=== PATIENT | male | born 1960 | race Caucasian/White ===

== ENCOUNTER 2019-10-21 08:47 | Day surgery (SDC) | payer BC ==
[~2019-10-21 08:47] MED LIST: Lactated Ringers 1,000 ML IV SCH
[2019-10-21] MEDS ORDERED: Midazolam 1 MG/ML 2 ML SDV ONE (09:06)
[2019-10-21] MEDS ORDERED: Propofol 200 MG/20 ML SDV ONE ×2 (09:06→09:52)
--- NOTE | 2019-10-21 09:49 | PCM.PREANE ---
Preanesthetic Assessment - Anesthesia/Transfusion/Family Hx Other Type of Anesthesia Reaction Comment: states "slept an extra 45 minutes after knee surgery in 1984" Transfusion History: No Prior Transfusion(s) - Physical Assessment NPO Status Date: 10/20/19 Vital Signs: Last Vital Signs Temp 97.0 F 10/21/19 09:04 Pulse 99 10/21/19 09:04 Resp 16 10/21/19 09:04 BP 137/88 10/21/19 09:04 Pulse Ox 95 10/21/19 09:04 Height: 5 ft 8 in Weight: 154.221 kg ASA Class: 4 Mental Status: Alert & Oriented x3 Airway Class: Mallampati = 3 Dentition: Reports: Normal Dentition ROM/Head Extension: Full Lungs: Clear to Auscultation, Normal Respiratory Effort Cardiovascular: Regular Rate, Regular Rhythm - Allergies Allergies/Adverse Reactions: Allergies Allergy/AdvReac Type Severity Reaction Status Date / Time No Known Allergies Allergy Verified 10/21/19 09:19 - Anesthesia Plan Pre-Op Medication Ordered: None - Acknowledgements Anesthesia Type Planned: General Anesthesia Pt an Appropriate Candidate for the Planned Anesthesia: Yes Alternatives and Risks of Anesthesia Discussed w Pt/Guardian: Yes Pt/Guardian Understands and Agrees with Anesthesia Plan: Yes Additional Comments: PMH: htn, hld, hyperuricemia, very high risk for JOSE MARIA, has refused w/u for JOSE MARIA PLAN: GET with propofol and ketamine, TIVA maintenence, prolongued post op observation, potential overnight admission. no narcotic and no benzodiazepine. if muscle relaxant needed: use sux PreAnesthesia Questionnaire HEENT History: Reports: None Cardiovascular History: Reports: High Cholesterol, Hypertension Respiratory History: Reports: Other (See Below) Other Respiratory History: chronic bronchitis when he was younger Gastrointestinal History: Reports: None Genitourinary History: Reports: None Musculoskeletal History: Reports: Gout Neurological History: Reports: None Psychiatric History: Reports: None Endocrine/Metabolic History: Reports: Obesity/BMI 30+ Other Endocrine/Metabolic History: "prediabetic" Hematologic History: Reports: None Immunologic History: Reports: None Oncologic (Cancer) History: Reports: None Dermatologic History: Reports: None - Past Surgical History Head Surgeries/Procedures: Reports: None HEENT Surgical History: Reports: Tonsillectomy Cardiovascular Surgical History: Reports: None Respiratory Surgical History: Reports: None GI Surgical History: Reports: None Male Surgical History: Reports: None Endocrine Surgical History: Reports: None Neurological Surgical History: Reports: None Musculoskeletal Surgical History: Reports: Arthroscopic Knee, Carpal Tunnel Other Musculoskeletal Surgeries/Procedures:: marilyn carpal tunnel release, knee arthroscopy, DeQuervains-left hand Oncologic Surgical History: Reports: None Dermatological Surgical History: Reports: None - SUBSTANCE USE Tobacco Use Within Last Twelve Months: Other (See Below) - HOME MEDS Home Medications: Home Meds Lisinopril 20 mg PO BRK 11/11/14 [History] allopurinoL [Allopurinol] 300 mg PO BRK 11/11/14 [History] amLODIPine Besylate [Amlodipine Besylate] 10 mg PO BRK 11/11/14 [History] atorvaSTATin [Lipitor] 20 mg PO BEDTIME 11/11/14 [History] Acetaminophen [Tylenol Arthritis] 1 tab PO ASDIRECTED PRN 10/15/19 [History] - CURRENT (IN HOUSE) MEDS Current Meds: Current Medications Lactated Ringer's (Ringers, Lactated) 1,000 mls @ 125 mls/hr IV ASDIRECTED JENNIFER Last Admin: 10/21/19 09:08 Dose: 125 mls/hr Discontinued Medications Midazolam HCl (Versed 1 Mg/Ml) Confirm Administered Dose 2 mg .ROUTE .STK-MED ONE Stop: 10/21/19 09:07 Propofol (Diprivan 20 Ml) Confirm Administered Dose 400 mg .ROUTE .STK-MED ONE Stop: 10/21/19 09:07
[2019-10-21] MEDS ORDERED: Lidocaine 2% 5 ML SDV ONE (10:00)
[2019-10-21] MEDS ORDERED: Lactated Ringers 1,000 ML IV SCH (10:30)
--- NOTE | 2019-10-21 10:31 | PCM.OPNOTE ---
- General Post-Op/Procedure Note Date of Surgery/Procedure: 10/21/19 Operative Procedure(s): Colonoscopy with cold rectal polypectomy Pre Op Diagnosis: Desire for colorectal cancer screening Post-Op Diagnosis: Rectal polyp Anesthesia Technique: General ET Tube (ASA III) Primary Surgeon: Johann Long Condition: Good Free Text/Narrative:: DICTATION [id number] CPT CODE 06180
--- NOTE | 2019-10-21 11:11 | OR ---
SURGEON: Johann Long M.D. DATE OF PROCEDURE: 10/21/2019 OPERATION PERFORMED: Colonoscopy with cold rectal polypectomy. PRIMARY SURGEON: Johann Long MD. ANESTHESIA: General endotracheal. ASA CLASSIFICATION: III. PREOPERATIVE DIAGNOSIS: Desire for colorectal cancer screening. POSTOPERATIVE DIAGNOSIS: Rectal polyp. DESCRIPTION OF PROCEDURE: The patient was taken to the endoscopy room and kept on the endoscopy table in the supine position. Following satisfactory attainment of general endotracheal anesthesia, he was positioned in the left lateral decubitus position. The colonoscope was inserted into the rectum and advanced with minimal difficulty to the cecum. The colonoscope was retroflexed to visualize the ascending colon from below, then straightened and slowly withdrawn. The cecum, ascending colon, hepatic flexure, transverse colon, splenic flexure, descending colon, and sigmoid colon were very well visualized. No tumors, polyps, diverticula, or angiodysplastic changes were noted anywhere in the lower gastrointestinal tract. Once the colonoscope was withdrawn to the rectum, a small polyp was encountered, and this was removed with cold biopsy forceps. The colonoscope was retroflexed to visualize the anal orifice from above. No tumors or polyps were seen. There were some minor hemorrhoidal changes. The colonoscope was then straightened, the rectum aspirated, and the colonoscope removed. The patient tolerated the procedure well. He was returned to the supine position. Following emergence from anesthesia and extubation, the patient was taken to recovery room in stable condition. REJI / ONDINA /[id number]
--- NOTE | 2019-10-21 11:30 | PCM.POSTAN ---
POST ANESTHESIA ASSESSMENT - MENTAL STATUS Mental Status: Alert, Oriented - VITAL SIGNS Vital Signs: Last Vital Signs Temp 97.2 F 10/21/19 11:00 Pulse 84 10/21/19 11:00 Resp 14 10/21/19 11:00 BP 149/78 H 10/21/19 11:00 Pulse Ox 91 L 10/21/19 11:00 - RESPIRATORY Respiratory Status: Respiratory Rate WNL, Airway Patent - CARDIOVASCULAR CV Status: Pulse Rate WNL, Blood Pressure Stable - GASTROINTESTINAL GI Status: No Symptoms - POST OP HYDRATION Hydration Status: Adequate & Stable - OBSERVATIONS Free Text/Narrative:: sats fall to 88% on room air when resting. Will start prolongued observation in phase 2 pacu.
--- NOTE | 2019-10-21 12:49 | PCM48HPAN ---
Post Anesthesia Note - EVALUATION WITHIN 48HRS OF ANESTHETIC Vital Signs in Normal Range: Yes Patient Participated in Evaluation: Yes Respiratory Function Stable: Yes Airway Patent: Yes Cardiovascular Function Stable: Yes Hydration Status Stable: Yes Pain Control Satisfactory: Yes Nausea and Vomiting Control Satisfactory: Yes Mental Status Recovered: Yes Vital Signs: Last Vital Signs Temp 97.2 F 10/21/19 11:00 Pulse 76 10/21/19 11:30 Resp 16 10/21/19 11:30 BP 124/70 10/21/19 11:30 Pulse Ox 92 L 10/21/19 11:30 - COMMENTS/OBSERVATIONS Free Text/Narrative:: sats 91-93% on room air during 45 min of obseration in phase 2. maddy disc inst given
[2019-10-21 13:35] VITALS: BP 123/67; PULSE 71
== END 2019-10-21 12:47 | disposition home or self-care (01) ==
LOC: MW.SDS 08:47
PROVIDERS: ATTEND Surgery
DX: Z12.11 Encounter for screening for malignant neoplasm of colon (principal); K62.1 Rectal polyp; E66.01 Morbid (severe) obesity due to excess calories; Z87.891 Personal history of nicotine dependence; Z68.43 Body mass index [BMI] 50.0-59.9, adult; Z72.89 Other problems related to lifestyle
CPT/HCPCS: 45380; J2001; J2704; J7120; 88305; J2250

== ENCOUNTER 2021-05-02 17:45 | Emergency (ER) | payer BC ==
[2021-05-02] MEDS ORDERED: valACYclovir 500 MG Tab PO ONE ×4 (20:30→20:35)
[2021-05-02] MEDS ORDERED: Acetaminophen/HYDROcodone 325-5 MG Tab PO ONE (20:36)
[2021-05-02] MEDS ORDERED: Ibuprofen 600 MG Tab PO ONE (20:36)
--- NOTE | 2021-05-02 20:43 | EDM.PDOC ---
ED HPI GENERAL MEDICAL PROBLEM - General Chief Complaint: Skin Complaint Stated Complaint: POSSIBLE SHINGLES Time Seen by Provider: 05/02/21 20:18 - History of Present Illness INITIAL COMMENTS - FREE TEXT/NARRATIVE: HISTORY AND PHYSICAL: History of present illness: This is a 61-year-old gentleman who presents ER today with self diagnosis of shingles to his right forehead and right temporoparietal region. Patient reports he is at pain and discomfort in that area for approximately 2 to 3 days and then today noticed vesicles and diagnosed himself with shingles. Patient presents ER today requesting assistance with treatment. Patient has any recent fevers, shakes, chills, nausea, vomiting, diarrhea, dysuria, frequency, urgency. Patient reports he did not get his shingles vaccination. Patient reports that he does not have any severe pain and is able to tolerate the discomfort with ibuprofen [id number]. Patient denies any pain or discomfort to his eyes. Patient denies any pain to his ear. Patient denies any recent weight gain or weight loss. Patient denies any immunocompromise states. Patient denies any visual changes. Review of systems: As per history of present illness and below otherwise all systems reviewed and negative. Past medical history: As per history of present illness and as reviewed below otherwise noncontributory. Surgical history: As per history of present illness and as reviewed below otherwise noncontributory. Social history: No reported history of drug abuse. Family history: As per history of present illness and as reviewed below otherwise noncontributory. Physical exam: This patient was seen and evaluated during the 2019 SARS-CoV-2 novel coronavirus pandemic period. Community viral transmission is ongoing at time of this encounter and the emergency department is operating under pandemic response procedures. Constitutional: Patient is oriented to person, place, and time. Appears well- developed and well-nourished. No distress. HEENT: Moist mucous membranes Head: Normocephalic and atraumatic Eyes: Right eye exhibits no discharge. Left eye exhibits no discharge. No scleral icterus Neck: Normal range of motion. No tracheal deviation present. Cardiovascular: Normal rate and regular rhythm. Pulmonary: Effort normal, no respiratory distress. Abdominal: No distention Musculoskeletal: Normal range of motion Neurologic: Alert and oriented to person, place and time. Skin: [place], warm and dry. Psychiatric: Normal mood and affect. Behavior is normal. Judgment and thought content normal. Nursing note and vital signs have been reviewed Patient's ER physical exam is significant for vesicular lesions on the right side of his forehead that do not cross to the left of the midline. Patient does have some vesicles to his scalp as well that do not cross over to the left of midline. Ophthalmological exam reveals no ulcerative lesions or injection to his conjunctiva. Negative fluorescein uptake. Visual acuity grossly intact. Diagnostics: [] Therapeutics: [] Assessment and plan: 61-year-old presents ER today secondary to diagnosis of shingles to his right forehead. Patient will get started on valacyclovir. Pharmacy is closed throughout town on so he will be given 3 additional pills of valacyclovir 1000 mg. Patient will be written a prescription for valacyclovir 1000 mg 3 times a day for 7 days. Patient also be given a prescription for ibuprofen and [place] to assist with pain and discomfort if he should have it. Patient was also instructed to make an appointment to see the executive community planning on Monday for reevaluation. Patient will make an appointment see his primary care physician within the week for reevaluation as well to. Reassessment at the time of disposition demonstrates that the patient is in no acute distress. The patient has remained stable throughout the entire ED visit and is without objective evidence for acute process requiring urgent intervention or hospitalization. The patient is stable for discharge, counseling is provided as documented above, discussed symptomatic treatment and specific conditions for return. I have spoken with the patient/caregiver and discussed todays findings, in addition to providing specific details for the plan of care. Questions are answered and there is agreement with the plan. Definitive disposition and diagnosis as appropriate pending reevaluation and review of above. Scalp Pain Score (Numeric/FACES): 2 - Related Data Allergies Allergy/AdvReac Type Severity Reaction Status Date / Time No Known Allergies Allergy Verified 05/02/21 19:40 Home Meds: Home Meds Lisinopril 20 mg PO BRK 11/11/14 [History] allopurinoL [Allopurinol] 300 mg PO BRK 11/11/14 [History] amLODIPine Besylate [Amlodipine Besylate] 10 mg PO BRK 11/11/14 [History] atorvaSTATin [Lipitor] 20 mg PO BEDTIME 11/11/14 [History] Acetaminophen [Tylenol Arthritis] 1 tab PO ASDIRECTED PRN 10/15/19 [History] Hydrocodone/Acetaminophen [Hydrocodone-Acetamin 5-325 mg] 1 each PO Q6HR PRN #14 tab 05/02/21 [Rx] Ibuprofen 600 mg PO Q6HR PRN #30 tablet 05/02/21 [Rx] valACYclovir HCl [valACYclovir] 1,000 mg PO TID #18 tablet 05/02/21 [Rx] Past Medical History HEENT History: Reports: None Cardiovascular History: Reports: High Cholesterol, Hypertension Respiratory History: Reports: Other (See Below) Other Respiratory History: chronic bronchitis when he was younger Gastrointestinal History: Reports: None Genitourinary History: Reports: None Musculoskeletal History: Reports: Gout Neurological History: Reports: None Psychiatric History: Reports: None Endocrine/Metabolic History: Reports: Obesity/BMI 30+ Other Endocrine/Metabolic History: "prediabetic" Hematologic History: Reports: None Immunologic History: Reports: None Oncologic (Cancer) History: Reports: None Dermatologic History: Reports: None - Infectious Disease History Infectious Disease History: Reports: Chicken Pox, Measles - Past Surgical History Head Surgeries/Procedures: Reports: None HEENT Surgical History: Reports: Tonsillectomy Cardiovascular Surgical History: Reports: None Respiratory Surgical History: Reports: None GI Surgical History: Reports: None Male Surgical History: Reports: None Endocrine Surgical History: Reports: None Neurological Surgical History: Reports: None Musculoskeletal Surgical History: Reports: Arthroscopic Knee, Carpal Tunnel Other Musculoskeletal Surgeries/Procedures:: marilyn carpal tunnel release, knee arthroscopy, DeQuervains-left hand Oncologic Surgical History: Reports: None Dermatological Surgical History: Reports: None Social & Family History - Family History Family Medical History: No Pertinent Family History - Tobacco Use Tobacco Use Status *Q: Former Tobacco User Used Tobacco, but Quit: Yes Month/Year Tobacco Last Used: 30 years - Caffeine Use Caffeine Use: Reports: Soda - Recreational Drug Use Recreational Drug Use: No ED ROS GENERAL - Review of Systems Review Of Systems: See Below ED EXAM, SKIN/RASH Exam: See Below Course - Vital Signs Last Recorded V/S: Last Vital Signs Temp 97.6 F 05/02/21 19:41 Pulse 83 05/02/21 19:41 Resp 20 05/02/21 19:41 BP 135/78 05/02/21 19:41 Pulse Ox 92 L 05/02/21 19:41 - Orders/Labs/Meds Orders: Active Orders 24 hr Category Date Time Status Acetaminophen/HYDROcodone [[place] 325-5 MG] Med 05/02/21 20:36 Once 1 tab PO ONETIME ONE Ibuprofen [Motrin] Med 05/02/21 20:36 Once 600 mg PO ONETIME ONE Meds: Medications Discontinued Medications Generic Name Dose Route Start Last Admin Trade Name Thom PRN Reason Stop Dose Admin Valacyclovir HCl 1,000 mg 05/02/21 20:30 Valacyclovir 500 Mg Tab PO 05/02/21 20:31 ONETIME ONE Valacyclovir HCl 1,000 mg 05/02/21 20:31 Valacyclovir 500 Mg Tab PO 05/02/21 20:32 ONETIME ONE Valacyclovir HCl 1,000 mg 05/02/21 20:32 Valacyclovir 500 Mg Tab PO 05/02/21 20:33 ONETIME ONE Valacyclovir HCl 1,000 mg 05/02/21 20:35 Valacyclovir 500 Mg Tab PO 05/02/21 20:36 ONETIME ONE Departure - Departure Time of Disposition: 20:40 Disposition: Home, Self-Care 01 Condition: Good Clinical Impression: Shingles Qualifiers: Herpes zoster complications: without complications Qualified Code(s): B02.9 - Zoster without complications - Discharge Information Instructions: Shingles Referrals: Logan Kc MD [Primary Care Provider] - Additional Instructions: Your seen and evaluated in ER today secondary to an outbreak of shingles to your forehead. As we discussed, you must follow-up with the eye doctor for reevaluation in the next 2 to 3 days. You will be given a prescription for valacyclovir 1000 mg 3 times a day for a total of 7 days. I will also write you a prescription for ibuprofen and [place] to assist you with pain and discomfort. Please make an appointment see your doctor within 1 to 2 weeks for reevaluation as well. Please return to the ER if you develop any visual changes, severe pain, severe headaches or any other new or concerning symptoms. The following information is given to patients seen in the emergency department who are being discharged to home. This information is to outline your options for follow-up care. We provide all patients seen in our emergency department with a follow-up referral. The need for follow-up, as well as the timing and circumstances, are variable depending upon the specifics of your emergency department visit. If you don't have a primary care physician on staff, we will provide you with a referral. We always advise you to contact your personal physician following an emergency department visit to inform them of the circumstance of the visit and for follow-up with them and/or the need for any referrals to a consulting specialist. The emergency department will also refer you to a specialist when appropriate. This referral assures that you have the opportunity for follow-up care with a specialist. All of these measure are taken in an effort to provide you with optimal care, which includes your follow-up. Under all circumstances we always encourage you to contact your private physician who remains a resource for coordinating your care. When calling for follow-up care, please make the office aware that this follow-up is from your recent emergency room visit. If for any reason you are refused follow-up, please contact the [facility] Emergency Department at and asked to speak to the emergency department charge nurse. [facility] [address] [place] [address] [place] [address] Sepsis Event Note (ED) - Evaluation Sepsis Screening Result: No Definite Risk - Focused Exam Vital Signs: Vital Signs Temp Pulse Resp BP Pulse Ox 05/02/21 19:41 97.6 F 83 20 135/78 92 L 05/02/21 19:39 96.5 F L 82 20 135/78 92 L - My Orders Last 24 Hours: My Active Orders 05/02/21 20:36 Acetaminophen/HYDROcodone [[place] 325-5 MG] 1 tab PO ONETIME ONE Ibuprofen [Motrin] 600 mg PO ONETIME ONE - Assessment/Plan Last 24 Hours: My Active Orders 05/02/21 20:36 Acetaminophen/HYDROcodone [[place] 325-5 MG] 1 tab PO ONETIME ONE Ibuprofen [Motrin] 600 mg PO ONETIME ONE
[2021-05-02 20:54] VITALS: BP 120/83; PULSE 80
== END 2021-05-02 21:03 | disposition home or self-care (01) ==
LOC: MW.ED 17:45
DX: B02.9 Zoster without complications (principal); E78.00 Pure hypercholesterolemia, unspecified; I10 Essential (primary) hypertension; M10.9 Gout, unspecified; E66.9 Obesity, unspecified; Z68.51 Body mass index [BMI] pediatric, less than 5th percentile for age; Z87.891 Personal history of nicotine dependence; Z79.899 Other long term (current) drug therapy
CPT/HCPCS: 99282; A9270